=== PATIENT | male | born 1965 | race Caucasian/White ===

== ENCOUNTER 2017-04-17 18:42 | Emergency (ER) | payer MEDICAID, SELFPAY ==
[~2017-04-17] VITALS: Ht 180.3 cm; Wt 74.0 kg
[2017-04-17] MEDS ORDERED: ASPIRIN 81 MG TABLET CHEW PO ONE (19:00)
[2017-04-17] MEDS ORDERED: ASPIRIN 81 MG TABLET CHEW ONE (19:10)
[2017-04-17 19:13] LABS: HEMATOCRIT 40.6 % (39.2-51.8); HEMOGLOBIN 13.7 g/dL (13.7-18.0); WHITE BLOOD COUNT 12.6 x10^3/uL (3.4-10)
[2017-04-17 19:23] LABS: BLOOD UREA NITROGEN 23 mg/dL (7-18)
[2017-04-17 19:28] LABS: IS PT STATUS REG ER OR PRE ER? YES
[2017-04-17] MEDS ORDERED: PLEASE ENTER ALLERGIES MC SCH ×2 (19:30)
[2017-04-17 20:21] VITALS: BP 124/78
== END 2017-04-17 20:32 | disposition home or self-care (01) ==
LOC: ED 18:58
DX: R07.2 Precordial pain (principal)
CPT/HCPCS: 36415; 71010; 80048; 82040; 84484; 85025; 93005; 99285

== ENCOUNTER 2018-03-10 09:22 | Emergency (ER) | payer MEDICAID ==
[~2018-03-10] VITALS: Ht 180.3 cm; Wt 79.5 kg
[2018-03-10 09:26] VITALS: BP 131/88
[2018-03-10 10:15] LABS: CULTURE INDICATED? YES; MICROSCOPIC INDICATED
[2018-03-10 10:21] LABS: AMPHETAMINE SCREEN, URINE Positive (Negative); BARBITURATE SCREEN, URINE Negative (Negative); BENZODIAZEPINE SCREEN, URINE Negative (Negative); CANNABINOID SCREEN, URINE Positive (Negative); COCAINE SCREEN, URINE Negative (Negative); METHADONE SCREEN, URINE Negative (Negative); OPIATE SCREEN, URINE Negative (Negative)
[2018-03-10 10:22] LABS: BASOPHILS # (AUTO) 0.02 x10^3/uL (0-0.1); BASOPHILS % (AUTO) 0 % (0-1); EOSINOPHILS # (AUTO) 0.04 x10^3/uL (0-0.4); EOSINOPHILS % (AUTO) 1 % (1-7); LYMPHOCYTES # (AUTO) 1.23 x10^3/uL (1-3.4); LYMPHOCYTES % (AUTO) 15 % (22-44); MD NO; MEAN CORPUSCULAR HEMOGLOBIN 29.7 pg (27.5-34.5); MEAN CORPUSCULAR HGB CONC 33.4 g/dL (33.2-36.2); MEAN CORPUSCULAR VOLUME 88.9 fL (81-97); MEAN PLATELET VOLUME 8.6 fL (7.4-10.4); MONOCYTES # (AUTO) 0.46 x10^3/uL (0.2-0.8); MONOCYTES % (AUTO) 6 % (2-9); NEUTROPHILS # (AUTO) 6.62 x10^3/uL (1.8-6.8); NEUTROPHILS % (AUTO) 79 % (42-75); PLATELET COUNT 262 x10^3/uL (130-400); RED BLOOD COUNT 4.83 x10^6/uL (4.38-5.82); RED CELL DISTRIBUTION WIDTH 14.4 % (9.4-14.8)
[2018-03-10 10:27] LABS: ALBUMIN 3.7 g/dL (3.4-5.0); ANION GAP 5 mmol/L (5-15); CALCIUM 8.9 mg/dL (8.5-10.1); CHLORIDE 107 mmol/L (98-107); CREATININE 0.95 mg/dL (0.7-1.3); SALICYLATE LEVEL 3.1 mg/dL (2.8-20.0)
[2018-03-10 10:29] LABS: ACETAMINOPHEN < 2 mcg/mL (10-30); ALANINE AMINOTRANSFERASE 41 U/L (12-78); ALKALINE PHOSPHATASE 82 U/L (45-117); BILIRUBIN,TOTAL 0.3 mg/dL (0.2-1.0)
== END 2018-03-10 12:17 | disposition home or self-care (01) ==
LOC: ED 10:55
DX: F32.9 Major depressive disorder, single episode, unspecified (principal); F19.14 Other psychoactive substance abuse with psychoactive substance-induced mood disorder; F17.210 Nicotine dependence, cigarettes, uncomplicated
CPT/HCPCS: 36415; 80053; 80307; 80329; 81001; 85025; 87086; 99284; G0480

== ENCOUNTER 2018-03-10 20:40 | Emergency (ER) | payer MEDICAID ==
[~2018-03-10] VITALS: Ht 180.3 cm; Wt 80.0 kg
[2018-03-10 20:49] VITALS: BP 126/86
[2018-03-10 21:09] LABS: AMPHETAMINE SCREEN, URINE Negative (Negative); BARBITURATE SCREEN, URINE Negative (Negative); BENZODIAZEPINE SCREEN, URINE Negative (Negative); CANNABINOID SCREEN, URINE Positive (Negative); COCAINE SCREEN, URINE Negative (Negative); METHADONE SCREEN, URINE Negative (Negative); OPIATE SCREEN, URINE Negative (Negative)
[2018-03-10 21:09] LABS: BASOPHILS # (AUTO) 0.07 x10^3/uL (0-0.1); BASOPHILS % (AUTO) 1 % (0-1); EOSINOPHILS # (AUTO) 0.12 x10^3/uL (0-0.4); EOSINOPHILS % (AUTO) 1 % (1-7); LYMPHOCYTES # (AUTO) 2.23 x10^3/uL (1-3.4); LYMPHOCYTES % (AUTO) 24 % (22-44); MD NO; MEAN CORPUSCULAR HEMOGLOBIN 29.2 pg (27.5-34.5); MEAN CORPUSCULAR HGB CONC 33.1 g/dL (33.2-36.2); MEAN CORPUSCULAR VOLUME 88.3 fL (81-97); MEAN PLATELET VOLUME 8.2 fL (7.4-10.4); MONOCYTES # (AUTO) 0.75 x10^3/uL (0.2-0.8); MONOCYTES % (AUTO) 8 % (2-9); NEUTROPHILS # (AUTO) 6.27 x10^3/uL (1.8-6.8); NEUTROPHILS % (AUTO) 67 % (42-75); PLATELET COUNT 263 x10^3/uL (130-400); RED BLOOD COUNT 4.61 x10^6/uL (4.38-5.82); RED CELL DISTRIBUTION WIDTH 14.1 % (9.4-14.8)
[2018-03-10 21:19] LABS: ANION GAP 6 mmol/L (5-15); CALCIUM 8.4 mg/dL (8.5-10.1); CHLORIDE 107 mmol/L (98-107); CREATININE 0.86 mg/dL (0.7-1.3)
[2018-03-10 21:20] LABS: ALBUMIN 3.5 g/dL (3.4-5.0); SALICYLATE LEVEL 3.4 mg/dL (2.8-20.0)
[2018-03-10 21:21] LABS: ACETAMINOPHEN < 2 mcg/mL (10-30)
== END 2018-03-10 23:20 | disposition home or self-care (01) ==
LOC: ED 20:57
DX: F32.9 Major depressive disorder, single episode, unspecified (principal); F12.10 Cannabis abuse, uncomplicated; R45.851 Suicidal ideations; R44.0 Auditory hallucinations; Z72.9 Problem related to lifestyle, unspecified; Z75.9 Unspecified problem related to medical facilities and other health care; Z63.8 Other specified problems related to primary support group
CPT/HCPCS: 36415; 80048; 80307; 80329; 82040; 85025; 99284; G0480

== ENCOUNTER 2018-07-28 04:54 | Emergency (ER) | payer MEDICAID ==
[~2018-07-28] VITALS: Ht 180.3 cm; Wt 67.6 kg
--- NOTE | 2018-07-28 05:05 | NUR ---
PT STATES "I AM NOT FEELING GOOD BECAUSE I DID TOO MUCH METH YESTERDAY". PA AT [facility], NO DISTRESS NOTED
[2018-07-28] MEDS ORDERED: ONDANSETRON ODT 4 MG ONE (05:13)
[2018-07-28 05:28] LABS: BASOPHILS # (AUTO) 0.03 x10^3/uL (0-0.1); BASOPHILS % (AUTO) 0 % (0-1); EOSINOPHILS # (AUTO) 0.17 x10^3/uL (0-0.4); EOSINOPHILS % (AUTO) 2 % (1-7); LYMPHOCYTES % (AUTO) 26 % (22-44); MD NO; MEAN CORPUSCULAR HGB CONC 33.8 g/dL (33.2-36.2); MEAN CORPUSCULAR VOLUME 88.8 fL (81-97); MEAN PLATELET VOLUME 7.5 fL (7.4-10.4); MONOCYTES # (AUTO) 0.64 x10^3/uL (0.2-0.8); MONOCYTES % (AUTO) 8 % (2-9); NEUTROPHILS # (AUTO) 5.05 x10^3/uL (1.8-6.8); NEUTROPHILS % (AUTO) 63 % (42-75); PLATELET COUNT 323 x10^3/uL (130-400); RED BLOOD COUNT 4.23 x10^6/uL (4.38-5.82); RED CELL DISTRIBUTION WIDTH 14.9 % (9.4-14.8)
[2018-07-28] MEDS ORDERED: ONDANSETRON ODT 4 MG PO ONE (05:30)
[2018-07-28 05:36] LABS: ALBUMIN 3.8 g/dL (3.4-5.0); ANION GAP 6 mmol/L (5-15); CALCIUM 8.5 mg/dL (8.5-10.1); CHLORIDE 107 mmol/L (98-107); CREATININE 0.98 mg/dL (0.7-1.3)
--- NOTE | 2018-07-28 06:03 | NUR ---
PT RESTING WITH EYES CLOSED, NO DISTRESS NOTED, BREATHING EVEN, NONLABORED
--- NOTE | 2018-07-28 07:08 | NUR ---
REPORT FROM MILY GUAN.
[2018-07-28 07:22] VITALS: BP 100/56
--- NOTE | 2018-07-28 07:47 | NUR ---
Patient given discharge instructions and they have confirmed that they understand the instructions. Patient ambulatory with steady gait.
== END 2018-07-28 07:50 | disposition home or self-care (01) ==
LOC: ED 05:57
DX: R10.84 Generalized abdominal pain (principal); R11.2 Nausea with vomiting, unspecified; F15.10 Other stimulant abuse, uncomplicated; F12.10 Cannabis abuse, uncomplicated
CPT/HCPCS: 36415; 80048; 82040; 85025; 99283; Q0162

== ENCOUNTER 2019-11-05 11:17 | Emergency (ER) | payer SELFPAY ==
[~2019-11-05] VITALS: Ht 180.3 cm; Wt 73.1 kg
[2019-11-05 11:22] VITALS: BP 121/75
--- NOTE | 2019-11-05 12:02 | NUR ---
Patient/Caregiver given discharge instructions and they have confirmed that they understand the instructions. Patient ambulatory with steady gait.
== END 2019-11-05 12:04 | disposition home or self-care (01) ==
LOC: ED 11:55
DX: B86 Scabies (principal); F17.200 Nicotine dependence, unspecified, uncomplicated
CPT/HCPCS: 99283

== ENCOUNTER 2019-11-23 08:08 | Emergency (ER) | payer MEDICAID ==
[~2019-11-23] VITALS: Ht 180.3 cm; Wt 72.5 kg
[2019-11-23 08:11] VITALS: BP 102/64
== END 2019-11-23 08:50 | disposition home or self-care (01) ==
LOC: ED 08:45
DX: B86 Scabies (principal); G89.29 Other chronic pain; M54.5 Low back pain
CPT/HCPCS: 99283